=== PATIENT | male | born 1985 | race Caucasian/White ===

== ENCOUNTER 2025-07-26 16:19 | Emergency (ER) | payer OTHER, MEDICAID ==
[~2025-07-26] VITALS: Ht 172.7 cm; Wt 77.0 kg
[2025-07-26 16:21] VITALS: O2SAT 98
[2025-07-26] MEDS ORDERED: IBUPROFEN 800MG TABLET PO ONE (17:30)
[2025-07-26 18:13] LABS: BASOPHILS % 0.8 % (0.0-2.0); EOSINOPHILS % 1.3 % (0.0-5.0); HEMATOCRIT. 47.6 % (42.0-52.0); HEMOGLOBIN. 16.5 g/dL (14.0-18.0); LYMPHOCYTES % 35.5 % (20.0-50.0); MEAN PLATELET VOLUME 10.4 fl (7.4-10.4); MONOCYTES % 5.1 % (2.0-8.0); NEUTROPHILS % 57.3 % (40.0-76.0); PLATELET 211 x1000/uL (130-400); RED BLOOD CELL COUNT 5.34 mill/uL (4.7-6.1); RED CELL DISTRIBUTION WIDTH 12.9 % (11.6-14.6)
[2025-07-26 18:26] LABS: CREATININE 0.7 mg/dL (0.6-1.3); UREA NITROGEN BLOOD 7 mg/dL (9-23)
[2025-07-26 18:28] LABS: ASPARTATE AMINOTRANSFERASE 74 IU/L (<34); BILIRUBIN DIRECT 0.1 mg/dL (<=3.0)
[2025-07-26 18:29] LABS: BILIRUBIN TOTAL 0.5 mg/dL (0.1-1.0); PROTEIN TOTAL 8.0 g/dL (6.0-8.3)
[2025-07-26] MEDS: LIDOCAINE 5% PATCH TOP STA (18:57)
[2025-07-26] MEDS: SODIUM CHLORIDE 0.9% 1,000 ML IV ONE (18:57)
[2025-07-26] MEDS: IBUPROFEN 800MG TABLET PO NR (19:21)
[2025-07-26 20:20] VITALS: BP 135/90; PULSE 83; RESP 18; TEMP 36.7; O2SAT 98
[2025-07-26] MEDS ORDERED: CYCL10TA21 MT (20:26)
[2025-07-26] MEDS ORDERED: IBUP-1455 MT (20:26)
[2025-07-26] MEDS ORDERED: LIDO700A30 TP (20:26)
== END 2025-07-26 20:24 | disposition home or self-care (01) ==
LOC: ER 16:19
DX: S09.8XXA Other specified injuries of head, initial encounter (principal); R51.9 Headache, unspecified; M54.2 Cervicalgia; E11.9 Type 2 diabetes mellitus without complications; F10.129 Alcohol abuse with intoxication, unspecified; K76.89 Other specified diseases of liver; M47.812 Spondylosis without myelopathy or radiculopathy, cervical region; V43.62XA Car passenger injured in collision with other type car in traffic accident, initial encounter; Y92.410 Unspecified street and highway as the place of occurrence of the external cause; Y93.89 Activity, other specified; Y99.8 Other external cause status
CPT/HCPCS: 99284; 70450; 96360; 80076; 80048; 83735; 85025; 36415; 72125; J7030